=== PATIENT | female | born 1965 | race African-American/Black ===

== ENCOUNTER 2024-07-27 18:12 | Emergency (ER) | payer OTHER ==
[~2024-07-27] VITALS: Ht 160 cm; Wt 77.0 kg
[~2024-07-27 18:12] MED LIST: SULF1TAB48
[2024-07-27 18:18] VITALS: BP 154/82; TEMP 36.7; O2SAT 98
[2024-07-27 18:20] VITALS: PULSE 98; RESP 14; O2SAT 100
[2024-07-27] MEDS ORDERED: TETANUS, DIPHTHERIA, PERTUSSIS VAC/PF 0.5ML (>10YR OLD) IM ONE (19:30)
== END 2024-07-27 19:34 | disposition left against medical advice (07) ==
LOC: ER 18:12
DX: S61.210A Laceration without foreign body of right index finger without damage to nail, initial encounter (principal); Z79.899 Other long term (current) drug therapy; W23.2XXA Caught, crushed, jammed or pinched between a moving and stationary object, initial encounter; Y93.89 Activity, other specified; Y92.89 Other specified places as the place of occurrence of the external cause; Y99.8 Other external cause status
CPT/HCPCS: 12001; 73130; 99283